=== PATIENT | female | born 1975 | race Caucasian/White ===

== ENCOUNTER → 2016-05-10 | Outpatient (CLI) | payer OTHER ==
[~2016-05-10] MED LIST: MAXA10TA2 PO; OXYC1SOL6 PO; PROT40TA PO
== END ==
LOC: HPND 08:02
PROVIDERS: ATTEND Obstetrics & Gynecology
DX: O09.522 Supervision of elderly multigravida, second trimester (principal); O35.1XX0 Maternal care for (suspected) chromosomal abnormality in fetus, not applicable or unspecified; O28.3 Abnormal ultrasonic finding on antenatal screening of mother; O99.842 Bariatric surgery status complicating pregnancy, second trimester
CPT/HCPCS: 76816; 76825; 76827; 93325